=== PATIENT | female | born 1960 | race Caucasian/White ===

== ENCOUNTER → 2016-07-17 | Outpatient (CLI) | payer OTHER ==
[2016-07-17 10:06] LABS: EKG EKG PERFORMED
[2016-07-17 10:33] LABS: Basophils % (A) 1 %; CH 30.4; Eosinophils # (A) 0.2 k/uL (0-0.7); Eosinophils % (A) 2 %; HCT 39.2 % (34.0-46.0); HDW 2.49; HGB 13.6 gm/dL (11.4-16.0); Luc # (Auto) 0.21; Luc % (Auto) 3; Lymphocytes # (A) 2.6 k/uL (1.0-4.8); Lymphocytes % (A) 34 %; MCHC 34.6 g/dL (31.0-37.0); MCV 89.6 fL (80.0-100.0); Mean Platelet Volume 7.5; Monocytes # (A) 0.4 k/uL (0-1.0); Monocytes % (A) 5 %; Neutrophils # (A) 4.3 k/uL (1.3-7.7); Neutrophils % (A) 56 %; RBC 4.38 m/uL (3.80-5.40); RDW 12.8 % (11.5-15.5); WBC 7.7 k/uL (3.8-10.6); WBC (Perox) 8.26
[2016-07-17 10:38] LABS: Partial Thromboplastin Time 23.4 sec (22.0-30.0); Prothrombin Time 10.1 sec (9.0-12.0)
[2016-07-17 10:48] LABS: Appearance,Urine Clear (Clear); Bilirubin,Urine Negative (Negative); Glucose,Urine (UA) Negative (Negative); Ketones,Urine Negative (Negative); Leukocyte Esterase,Urine Moderate (Negative); Mucus,Urine Rare /hpf; Nitrite,Urine Negative (Negative); Particle Count 4759; Protein,Urine Negative (Negative); RBC,Urine 3 /hpf (0-5); Specific Gravity,Urine 1.005 (1.001-1.035); Squamous Epithelial Cell,Urine 6 /hpf (0-4); UA Billing (MACRO vs. MICRO) MICRO; Urobilinogen,Urine <2.0 mg/dL (<2.0); WBC,Urine 2 /hpf (0-5)
[2016-07-17 10:49] LABS: ALT 35 U/L (9-52); AST 22 U/L (14-36); Alkaline Phosphatase 55 U/L (38-126); Anion Gap 12 mmol/L; Blood Urea Nitrogen 15 mg/dL (7-17); Calcium 10.3 mg/dL (8.4-10.2); Carbon Dioxide 25 mmol/L (22-30); Chloride 107 mmol/L (98-107); Glucose 92 mg/dL (74-99); Non-African American GFR(MDRD) >60 (>60 ml/min/1.73 sqM); Potassium 4.9 mmol/L (3.5-5.1); Sodium 144 mmol/L (137-145); Total Bilirubin 0.5 mg/dL (0.2-1.3); Total Protein 7.5 g/dL (6.3-8.2)
== END ==
LOC: LABPAT 09:50
PROVIDERS: ATTEND Orthopaedic Surgery Sports Medicine
DX: Z01.810 Encounter for preprocedural cardiovascular examination (principal); Z01.812 Encounter for preprocedural laboratory examination
CPT/HCPCS: 80053; 81001; 85025; 85610; 85730; 87070; 93005

== ENCOUNTER → 2016-07-17 | Outpatient (CLI) | payer OTHER ==
--- NOTE | 2016-07-17 10:31 | CT ---
EXAMINATION TYPE: CT shoulder RT wo con DATE OF EXAM: 07/17/2016 8:52 AM COMPARISON: NONE HISTORY: Rt shoulder pain, presurgical study. CT DLP: 340 mGycm Automated exposure control for dose reduction was used. CT scan of right shoulder is performed withou t contrast. Reconstructed 3-D images are acquired FINDINGS: There is no acute fracture In the right shoulder. Distal acromion morphology is preserved. Subchondra l cystic change distal clavicle is present. No significant spurring at acromioclavicular joint is not ed. Glenohumeral joint shows moderate to advanced joint space loss. There is 40 degree posterior retrover darin of the glenoid noted. There is moderate bony loss and spurring of the posterior glenoid. There i s a 1.2 cm subchondral cyst in the inferior glenoid seen best on sagittal image 30. Anterior inferior glenoid shows prominent osteophyte seen best near axial image 22 series 3. There is loss of normal spherical shape of the humeral head superiorly. Findings suggest bony Bankart lesion in old Hill-Sachs deformity possibly related to old anterior shoulder dislocation. Rotator cuff muscle bulk is preserved. IMPRESSION: PRESURGICAL FINDINGS NOTED ABOVE, MOST SEVERE ARTHROPATHY GLENOHUMERAL JOINT LEVEL.
== END ==
LOC: RADCTMAIN 08:21
PROVIDERS: ATTEND Orthopaedic Surgery Sports Medicine
DX: M12.811 Other specific arthropathies, not elsewhere classified, right shoulder (principal); M19.011 Primary osteoarthritis, right shoulder
CPT/HCPCS: 93005

== ENCOUNTER → 2016-07-17 | Outpatient (CLI) | payer OTHER ==
--- NOTE | 2016-07-17 09:57 | MM ---
Reason for exam: follow-up at short interval from prior study. Last mammogram was performed 6 months ago. History: Patient is postmenopausal and has history of high-risk lesion on a previous biopsy at age 55. Family history of breast cancer in paternal grandmother. High risk MG stereo VAD BX addl LT of the left breast, February 04, 2016. High risk MG stereo VAD BX LT of the left breast, February 04, 2016. Excisional biopsy of the right breast. Physical Findings: Nurse did not find any significant physical abnormalities on exam. MG 3D Diag Mammo W/Cad [place]RI[place] Bilateral CC and MLO view(s) were taken. Prior study comparison: January 19, 2016, bilateral MG 3d work up w/cad [place]RI[place]. January 14, 2016, bilateral MG screening mammo w CAD. There are scattered fibroglandular densities. Previous mammotome biopsy in the left breast. There is chronic nodularity in the right breast. No significant new findings when compared with previous films. These results were verbally communicated with the patient and result sheet given to the patient on 07/17/16. ASSESSMENT: Benign, BI-RAD 2 RECOMMENDATION: Routine screening mammogram of both breasts in 1 year. Manage patient on a clinical basis.
== END ==
LOC: RADMAMWWP 08:41
PROVIDERS: ATTEND Surgery
DX: R92.8 Other abnormal and inconclusive findings on diagnostic imaging of breast (principal)
CPT/HCPCS: G0204; G0279

== ENCOUNTER 2016-08-17 11:00 | Inpatient (IN) | payer OTHER ==
[2016-08-28 15:15] VITALS: BMI 35.4
[2016-08-31] MEDS ORDERED: ONDANSETRON 4 MG/2 ML VIAL IVP ONE ×2 (05:00→05:32)
[2016-08-31] MEDS ORDERED: MELOXICAM 7.5 MG TAB PO ONE (05:00)
[2016-08-31] MEDS ORDERED: TRANEXAMIC ACID 1,000 MG in SODIUM CHLORIDE 0.9% 100 ML IVPB ONE ×4 (05:00)
[2016-08-31] MEDS ORDERED: ACETAMINOPHEN TAB 500 MG TAB PO ONE (05:00)
[2016-08-31] MEDS ORDERED: ceFAZolin 2 GM in SODIUM CHLORIDE 0.9% 100 ML IVPB ONE (05:00)
[2016-08-31] MEDS ORDERED: DEXAMETHASONE SOD PHOSPHATE 10 MG/ML 1 ML VIAL IV ONE (05:32)
[2016-08-31] MEDS ORDERED: LACTATED RINGERS 1,000 ML IV SCH (05:32)
[2016-08-31] MEDS ORDERED: MIDAZOLAM 2 MG/2 ML VIAL IV PRN (05:32)
[2016-08-31] MEDS ORDERED: LIDOCAINE 1% 20 ML VIAL (10MG/ML) FOR IV START SQ ONE (10:10)
[2016-08-31] MEDS ORDERED: fentaNYL (PF) 50 MCG/ML 2 ML AMP ONE (11:28)
[2016-08-31] MEDS ORDERED: ePHEDrine 50 MG/ML 1 ML AMP ONE (11:28)
[2016-08-31] MEDS ORDERED: SUCCINYLCHOLINE CHLORIDE 100 MG/5 ML SYR IV ONE (11:28)
[2016-08-31] MEDS ORDERED: TRANEXAMIC ACID 1,000 MG/10 ML VIAL ONE (11:28)
[2016-08-31] MEDS ORDERED: LIDOCAINE 2%-EPI 1:100,000 20 ML VIAL ONE (11:28)
[2016-08-31] MEDS ORDERED: BUPIVACAINE (PF) 0.5% 30 ML VIAL ONE (11:28)
[2016-08-31] MEDS ORDERED: MIDAZOLAM 2 MG/2 ML VIAL ONE (11:28)
[2016-08-31] MEDS ORDERED: PHENYLEPHRINE-0.9% NACL SYG 1 MG/10 ML SYRINGE ONE (11:28)
[2016-08-31] MEDS ORDERED: NEOSTIGMINE 1 MG/ML 10 ML VIAL ONE (11:28)
[2016-08-31] MEDS ORDERED: PROPOFOL 10 MG/ML 20 ML VIAL IV ONE (11:28)
[2016-08-31] MEDS ORDERED: ROCURONIUM BROMIDE 10 MG/ML 10 ML VIAL IV ONE (11:28)
[2016-08-31] MEDS ORDERED: GLYCOPYRROLATE 0.2 MG/ML 2 ML VIAL ONE (11:28)
[2016-08-31] MEDS ORDERED: SODIUM CHLORIDE 0.9% 100 ML BAG ONE (11:28)
[2016-08-31] MEDS ORDERED: LIDOCAINE 1% INJ 10MG/ML (20 ML MDV) ONE (11:28)
[2016-08-31] MEDS ORDERED: ceFAZolin 3,000 MG in SODIUM CHLORIDE 0.9% IRRIGATIO 3,000 ML IRRIGATION ONE (12:02)
[2016-08-31] MEDS ORDERED: LACTATED RINGERS 1,000 ML IV ONE ×3 (12:15→15:50)
[2016-08-31] MEDS: LACTATED RINGERS 1,000 ML IV ONE ×2 (12:15→14:06)
[2016-08-31] MEDS ORDERED: VANCOMYCIN 1,000 MG VIAL MISCELLANE ONE ×2 (12:34→13:31)
[2016-08-31] MEDS ORDERED: PROCHLORPERAZINE SUPPOSITORY 25 MG SUPP RECTAL PRN (14:07)
[2016-08-31] MEDS ORDERED: ONDANSETRON 4 MG/2 ML VIAL IVP PRN (14:07)
[2016-08-31] MEDS ORDERED: METOCLOPRAMIDE 5 MG/ML 2 ML VIAL IVP PRN (14:07)
[2016-08-31] MEDS ORDERED: diphenhydrAMINE 25 MG CAP PO PRN (14:07)
[2016-08-31] MEDS ORDERED: HYDROcodone/APAP 5-325MG 1 EACH TAB PO PRN ×2 (14:07)
[2016-08-31] MEDS ORDERED: TEMAZEPAM 15 MG CAP PO PRN (14:07)
[2016-08-31] MEDS ORDERED: HYDROmorphone 1 MG/ML 1 ML SYRINGE IVP PRN ×3 (14:07)
[2016-08-31] MEDS ORDERED: SENNOSIDES-DOCUSATE SODIUM 1 EACH TAB PO PRN (14:07)
[2016-08-31] MEDS: HYDROmorphone 1 MG/ML 1 ML SYRINGE IVP PRN ×4 (14:11→15:16)
[2016-08-31] MEDS ORDERED: HYDROcodone/APAP 7.5-325MG 1 EACH TAB PO PRN (14:16)
--- NOTE | 2016-08-31 14:42 | XR ---
EXAMINATION TYPE: XR shoulder limited RT DATE OF EXAM: 08/31/2016 2:25 PM COMPARISON: NONE HISTORY: 56-year-old female postop hardware alignment TECHNIQUE: Single portable AP view FINDINGS: A surgical drain is present as well as soft tissue/bursal/intra-articular air related to recent opera tion. Images show placement of a reverse right shoulder arthroplasty. Alignment appears appropriate. No periprosthetic fracture identified. IMPRESSION: Uncomplicated postoperative appearance reverse right total shoulder arthroplasty.
[2016-08-31 17:22] LABS: Basophils % (A) 0 %; CH 29.5; CHCM 31.4; Eosinophils % (A) 0 %; HCT 39.4 % (34.0-46.0); HDW 2.36; HGB 12.5 gm/dL (11.4-16.0); Luc # (Auto) 0.05; Luc % (Auto) 1; Lymphocytes # (A) 0.8 k/uL (1.0-4.8); Lymphocytes % (A) 8 %; MCH 29.9 pg (25.0-35.0); MCHC 31.8 g/dL (31.0-37.0); MCV 94.1 fL (80.0-100.0); Mean Platelet Volume 6.9; Monocytes # (A) 0.1 k/uL (0-1.0); Monocytes % (A) 1 %; Neutrophils # (A) 8.9 k/uL (1.3-7.7); Neutrophils % (A) 90 %; RBC 4.19 m/uL (3.80-5.40); RDW 12.9 % (11.5-15.5); WBC (Perox) 9.85
[2016-08-31] MEDS: LACTATED RINGERS 1,000 ML IV SCH (18:11)
[2016-08-31] MEDS: ceFAZolin 2 GM in SODIUM CHLORIDE 0.9% 100 ML IVPB SCH (21:58)
[2016-08-31] MEDS: DOXYCYCLINE 50 MG CAP PO SCH (21:58)
[2016-09-01] MEDS: LACTATED RINGERS 1,000 ML IV SCH ×4 (01:48→21:50)
[2016-09-01 03:43] VITALS: RESP 16
[2016-09-01] MEDS: ceFAZolin 2 GM in SODIUM CHLORIDE 0.9% 100 ML IVPB SCH (03:57)
[2016-09-01] MEDS: DOXYCYCLINE 50 MG CAP PO SCH ×2 (07:21→21:32)
[2016-09-01] MEDS: HYDROcodone/APAP 10-325MG 1 EACH TAB PO PRN ×3 (09:20→18:03)
[2016-09-01] MEDS: hydrOXYzine PAMOATE 25 MG CAP PO PRN ×3 (09:20→18:03)
--- NOTE | 2016-09-01 09:36 | P.DS ---
Providers Date of admission: 08/31/16 09:16 Expected date of discharge: 09/01/16 Attending physician: Ross Negrete Consults: 08/31/16 14:07 Consult Physician Routine Consulting Provider: Bari Cee Consult Reason/Comments: post op medical management Do you want consulting provider notified?: Yes Primary care physician: Cindy [facility] Course: Patient is a pleasant 56-year-old female who was admitted to the OR on 2016 to undergo right total shoulder arthroplasty. She had failed conservative measures as an outpatient and desired to proceed with elective surgery after given informed consent. She underwent the above procedure which she tolerated well without complication. On day of discharge she desires discharge to home. Day of discharge she is tolerating by mouth meds and diet, has no new complaints , pain is controlled with oral pain medication, passing flatus, voiding without difficulty, afebrile, vital signs stable, labs within acceptable ranges, neurovascular status intact, wound is benign, calf is soft and nontender, abdomen soft nontender. Review of systems is negative for fever, chills, chest pain, shortness breath, nausea, vomiting, numbness, tingling, weakness, slurred speech or other Procedures: Right total shoulder arthroplasty Patient Condition at Discharge: Good Plan - Discharge Summary New Discharge Prescriptions: Doxycycline Hyclate 100 mg PO BID #10 tab HYDROcodone/APAP 10-325MG [Justice 10-325] 1 tab PO Q4HR PRN #60 tab PRN Reason: Pain Discharge Medication List Acetaminophen Tab [Tylenol Tab] 1,000 mg PO Q6HR PRN 08/28/16 [History] PARoxetine [Paxil] 10 mg PO DAILY 08/28/16 [History] Sulfamethox-Tmp 800-160Mg [Bactrim DS 800-160 mg] 1 tab PO Q12HR 08/29/16 [ History] Atorvastatin [Lipitor] 40 mg PO DAILY 08/31/16 [History] Doxycycline Hyclate 100 mg PO BID #10 tab 09/01/16 [Rx] HYDROcodone/APAP 10-325MG [Justice 10-325] 1 tab PO Q4HR PRN #60 tab 09/01/16 [Rx] Follow up Appointment(s)/Referral(s): Ross Negrete MD [STAFF PHYSICIAN] - 10 Days Activity/Diet/Wound Care/Special Instructions: Keep wound clean and dry Take meds as directed Nonweightbearing right upper extremity Follow-up with Dr. Negrete in office, [phone] Discharge Disposition: HOME SELF-CARE
--- NOTE | 2016-09-01 10:44 | OP ---
DATE OF SERVICE: 08/31/2016 SURGEON: ZORAN LIU MD ATTENDANT SELF SERVICE STORE: Altaf Waite PA-C PREOPERATIVE DIAGNOSIS: Right shoulder osteoarthrosis. POSTOPERATIVE DIAGNOSIS: Right shoulder osteoarthrosis. OPERATION: Right reverse total shoulder arthroplasty. ANESTHESIA: General endotracheal. ESTIMATED BLOOD LOSS: 400 mL. SPECIMENS REMOVED: COMPLICATIONS: None apparent. DRAINS: One deep drain. DISPOSITION: Postanesthesia care unit. OPERATIVE FINDINGS: INDICATIONS: Calli is a very pleasant 56-year-old female of longstanding right shoulder pain. Workup including x-rays revealed advanced osteoarthrosis of the right shoulder. At this point it is felt that she has failed conservative management and she would like to proceed with operative intervention. The risks of the procedure were discussed with her in detail. These risks include but are not limited to risk of infection, nerve damage, bleeding, pain, instability in the shoulder, loosening of the implants and deep infection. There is also risk of deep vein thrombosis, which could lead to fatal pulmonary embolism. The patient understood the risks. All of her questions with regards to the risk for the procedure were answered to her satisfaction. An appropriate informed consent was obtained. DESCRIPTION OF PROCEDURE: The patient was identified in the preoperative holding area. Surgical site was marked by both the patient and myself. She is given 2 grams of Ancef IV for prophylactic purposes. She was then transferred to the operative suite where she was placed supine on the operative table. A general anesthetic was then administered and dosed per the Anesthesia Department without apparent complications. Examination under anesthesia was then performed of the right shoulder. She had elevation to 110 degrees, external rotation at the side was to 20 degrees. The patient's right upper extremity was then prepped and draped in the usual sterile fashion. Standard surgical pause was then undertaken to ensure that we are operating on the correct site and that appropriate preoperative antibiotics had been given. All staff in the room were in agreement and we proceeded. The acromion, AC joint, clavicle, and coracoid were marked with a surgical pen. A planned incision starting at the level of the clavicle and extending distally over the deltopectoral interval approximately 1 cm lateral to the coracoid was marked with a surgical pen. The incision was then made with 10 blade scalpel. Dissection was carried down sharply to the deltoid fascia. The deltopectoral interval was identified at the level of the clavicle. A small band retractor was then placed onto the proximal deltoid. I then released the deltoid fascia on the lateral aspect of the cephalic vein. The vein was left in its bed medially. The cephalic vein was protected throughout the entire case. I then identified the clavipectoral fascia. It was incised proximally to level of the coracoacromial ligament. The coracoacromial ligament was left intact. I then used my finger to spread the interval between the conjoined tendon and the subscapularis. I felt for the axillary nerve, which was readily palpable. I then cleared the subacromial and subdeltoid spaces of bursal and scar tissue. I then utilized a brown retractor to hold the deltoid and expose the humeral head. I then proceeded to release the subscapularis in the anterior-inferior shoulder capsule. The rotator cuff was inspected inferior. It was found to be intact. The rotator interval was clearly identified. The course of the biceps tendon was also identified. I then released the rotator interval. It was released at the base of the coracoid and then out laterally. The subscapularis and the capsule were then released intratendinously. Subscapularis and the anterior capsule release then extended distally in a lazy S fashion, approximately 1 cm medial to the biceps tendon. I then continued to release the capsule along the inferior neck in a vertical fashion to about approximately 6 o'clock position. Great care was taken to ensure that the capsule was always visualized as it was released to avoid injuring the axillary nerve. I then brought a Evans inspector packer with the arm externally rotated and abducted. I then continued to release the capsule inferomedially to the 4 o'clock position. The inferior osteophytes were then removed as well. This was done with a rongeur. I then proceeded with preparation of the humerus. I removed all the inferior goat's galvez osteophytes. I then removed the subchondral plate from the superior aspect of the humeral head utilizing a large rongeur. I then used a starter reamer to gain access to the humeral canal. This was 1 cm medial to the rotator cuff insertion and 1 cm posterior to the bicipital groove. I then prepared the humeral canal with hand reaming. I started with a 6 mm reamer and progressed in 1 mm increments until firm resistance was encountered at 9 mm. The reamer handle was then left in place. I then utilized the humeral resection guide. This was set at 30 degrees of retrotorsion. The cutting block was then set for approximately 1 to 2 mm above the insertion of the rotator cuff. I then proceeded to osteotomize the head with an oscillating saw. I removed the resection guide and then completed the osteotomy. I then proceeded with trial stem placement. I first started with 6 mm broach and then broached up to a 9 mm broach. A 9 mm mini trial stem was then placed. At this point, I proceeded with exposure of the glenoid. She did have quite a bit of retroversion noted on her preoperative CT scan. I wanted to expose the glenoid to make a decision about the type of implant to use before trialing the humeral head. At this point I did release the biceps tendon. This was tenotomized. I first tenodesed the biceps tendon to the soft tissues of the bicipital groove. Then I tenotomized the intra-articular aspect of the biceps tendon at the level of the superior labrum. A bone hook was then utilized to pull humerus out laterally. I inspected the joint for any loose bodies. The condition of the cuff was again inspected. It was intact. Bhattman retractor was then placed on the posterior glenoid rim. The arm was then placed in approximately 70 to 80 degrees of abduction and slight flexion on the Evans stand. I then proceeded to remove the hypertrophic labrum to definitively identify the actual glenoid. I then inspected the glenoid. She had significant amount of retroversion. She had an appearance of her glenoid that it was hypoplastic as well. Due to fairly significant retroversion and the hypoplasia of the glenoid I made a decision to go forward with a semiconstrained implant at this time and proceeded with a reverse total shoulder arthroplasty. I then placed the mini baseplate guide. This fit very nicely on the glenoid. The pin was then placed in the center of the glenoid with approximately 10 degrees of inferior tilt. I was able to feel along the anterior neck of the glenoid. The pin did not protrude out anteriorly. It was placed centrally within the scapula. I then proceeded with reaming. I utilized the reamer. Again it was reamed in approximately 10 degrees of inferior tilt. Approximately the superior lateral aspect of the glenoid after reaming still was left unreamed. This was an area where I planned to proceed with bone grafting behind the glenoid baseplate. I then had the chemical sales representative open Biomet mini glenoid baseplate. It was then impacted into place. I then utilized bone from the osteotomized humeral head to pack behind the posterior superior aspect of the baseplate. I then proceeded to place a central screw. A 25 mm central screw was then placed. I had excellent purchase in bone. I was able to rotate the scapula through with the screwdriver after the screw was firmly seated. I then proceeded to place the peripheral locking screws. The superior and an inferior screws were placed. These were 20 mm and 15 mm screws. The posterior screw was also placed. This was a 30 mm screw. These were all 5.0 mm locking screws. The anterior screw was not placed as I felt it would protrude anteriorly. I then placed a trial 36 glenosphere. This seemed to fit very nicely. I then had the chemical sales representative open a Biomet 36 mm glenosphere. I then impacted the trunnion on the back table. This was done so that I could offset the glenosphere inferiorly as much possible. The glenosphere was then impacted onto the baseplate securely. I then proceeded with trialing. The proximal humerus was then delivered out of the wound again. A standard tray and a standard polyethylene was then placed onto the stem. The shoulder was reduced. It was a very difficult reduction. There was very minimal shuck. The shoulder was stable throughout a full range of motion. I decided to go with a standard tray and a standard poly. The shoulder was then dislocated. Again, the proximal humerus was delivered out through the wound. The wound was again thoroughly irrigated with sterile saline solution with antibiotic added. I had the chemical sales representative open a Biomet size 9 mini stem, a standard polyethylene for a 36 mm glenosphere and a standard tray. The poly was impacted onto the tray on the back table. The 9 mini stem was then placed in 30 degrees of retrotorsion. The standard tray was then placed onto the Meeks taper of the stem and impacted into place firmly. The shoulder was then reduced. It was very stable. There was no undue tension on the conjoined tendon. It was taken through full range of motion. It was very stable. No impingement was noted. I then assessed to see if I could repair the subscapularis. I was able to bring the subscapularis back to the lesser tuberosity and approximately 20 degrees of external rotation. I then repaired the subscapularis with #2 Vicryl interrupted suture. The rotator interval was also a closed with #2 Vicryl interrupted suture. The wound again was thoroughly irrigated with sterile saline solution with antibiotic added. A deep drain was then placed and brought out proximally through the skin away from the incision. Vancomycin powder was then placed into the wound. The axillary nerve was felt for and was intact. The deltopectoral interval was then closed with 0 Vicryl interrupted suture. Again, the wound was thoroughly irrigated with sterile saline solution with antibiotic added. Again, the rest of the vancomycin powder was placed. In total it was 1 gram of vancomycin powder. The subcutaneous tissue was then closed with 2-0 Vicryl interrupted suture and the skin was closed with 3-0 Quill suture. Dermabond was then applied to the incision. Sterile compressive dressings were applied. The patient's right upper extremity was then placed into a standard sling. All sponge and needle counts were deemed correct prior to closure. The patient tolerated the procedure without apparent complication. She was transferred to recovery room in stable condition.
--- NOTE | 2016-09-01 12:48 | P.CONS ---
History of Present Illness - Reason for Consult Consult date: 09/01/16 Medical management Requesting physician: Ross Negrete - Chief Complaint Status post right total shoulder arthroplasty - History of Present Illness This is a 56-year-old female with a known history of hyperlipidemia, generalized anxiety disorder and recent UTI. Patient completed antibiotic outpatient for her urinary tract infection. She's no longer having urinary symptoms. Patient has been suffering with right shoulder pain failing conservative management. Therefore she underwent a right total shoulder arthroplasty yesterday with Dr. Negrete. Patient tolerated surgery well. She is complaining of some pain in that shoulder. Orthopedics have adjusted pain medication. If patient's pain is controlled she likely will be discharged later this evening. Patient denies any fever or chills or sweats. Denies any nausea or vomiting. Last bowel movement was prior to surgery. Denies any difficulty urinating. Denies any burning with urination. Patient has been up and ambulating Review of Systems Please refer to HPI otherwise unremarkable Past Medical History Past Medical History: Hyperlipidemia, Musculoskeletal Disorder Additional Past Medical History / Comment(s): RT SHOULDER PAIN. Uti completed antibiotics History of Any Multi-Drug Resistant Organisms: None Reported Past Surgical History: Breast Surgery Additional Past Surgical History / Comment(s): RT BREAST LUMPECTOMY. LT Breast Biopsy; cervical biopsy. COLONOSCOPY. Past Anesthesia/Blood Transfusion Reactions: No Reported Reaction Past Psychological History: No Psychological Hx Reported Smoking Status: Former smoker Past Alcohol Use History: Rare Additional Past Alcohol Use History / Comment(s): SMOKED 30 YEARS, 1 / PPD, QUIT 06/2016 Past Drug Use History: None Reported - Past Family History Mother Family Medical History: Cancer Medications and Allergies Home Medications Medication Instructions Recorded Confirmed Type Acetaminophen Tab [Tylenol Tab] 1,000 mg PO Q6HR PRN 08/28/16 08/31/16 History PARoxetine [Paxil] 10 mg PO DAILY 08/28/16 08/31/16 History Sulfamethox-Tmp 800-160Mg [Bactrim 1 tab PO Q12HR 08/29/16 08/31/16 History DS 800-160 mg] Atorvastatin [Lipitor] 40 mg PO DAILY 08/31/16 08/31/16 History Allergies Allergy/AdvReac Type Severity Reaction Status Date / Time aspirin AdvReac Nausea Verified 08/28/16 14:39 Physical Exam Vitals: Vital Signs Temp Pulse Pulse Pulse Resp BP Pulse Ox 09/01/16 08:00 58 L 61 16 09/01/16 07:28 98.0 F 61 16 105/71 95 09/01/16 01:00 98.4 F 79 16 120/72 93 L 08/31/16 20:00 97.9 F 69 18 102/71 97 08/31/16 19:15 58 L 97/61 08/31/16 18:45 60 103/61 08/31/16 18:15 70 92/73 08/31/16 18:00 57 L 83/57 08/31/16 17:45 56 L 94/56 08/31/16 17:30 58 L 86/49 08/31/16 17:15 59 L 85/40 08/31/16 17:00 73 109/75 08/31/16 16:45 69 106/71 08/31/16 16:30 62 89/47 08/31/16 16:15 97.5 F L 77 18 129/74 92 L 08/31/16 15:55 78 18 104/61 95 08/31/16 15:40 80 16 101/59 95 08/31/16 15:25 63 16 104/58 95 08/31/16 15:10 74 16 107/64 97 08/31/16 14:55 71 16 104/58 97 08/31/16 14:40 63 16 100/56 96 08/31/16 14:25 76 18 118/60 98 08/31/16 14:10 97.7 F 77 16 99/54 98 Intake and Output 08/31/16 09/01/16 09/01/16 22:59 06:59 14:59 Intake Total 660 800 240 Output Total 20 740 Balance 640 60 240 Intake: IV 600 800 Lactated Ringers 1,000 ml 400 800 @ 100 mls/hr IV .Q10H MATT Rx#:[id number] Oral 60 240 Output: Drainage 40 Right Shoulder 40 Urine 700 Estimated Blood Loss 20 Other: # Voids 2 1 Head normocephalic Neck supple Lungs clear to auscultation bilaterally no wheezing or crackles Heart regular rate and rhythm S1-S2, no rub or gallop Abdomen is soft nontender nondistended positive bowel sounds no hepatosplenomegaly Extremities no edema of the lower extremities. Right shoulder in sling. Dressing clean dry and intact. +2 radial pulse. Neuro alert and orientated to 3 Results CBC & Chem 7: 08/31/16 16:50 Labs: Abnormal Lab Results - Last 24 Hours (Table) 08/31/16 Range/Units 16:50 Neutrophils # 8.9 H (1.3-7.7) k/uL Lymphocytes # 0.8 L (1.0-4.8) k/uL Assessment and Plan Plan: 1. Right shoulder osteoarthrosis status post right total shoulder arthroplasty. Pain control per orthopedics. Estimated blood loss 400 mL. No complications. Orthopedics have adjusted patient's pain medication. 2. History of hyperlipidemia: Patient reports stopping her Lipitor because it made her sick. She's not taken in a few months. She reports that she'll be following up with Dr. Mcclure to discuss this. 3. Generalized anxiety disorder continue with the Paxil 4. Recent UTI completed antibiotic treatment outpatient. Patient no longer having any urinary symptoms. Anticipate discharge later on this afternoon or tomorrow if patient's pain is controlled Thank you for this consultation. We will continue to follow along with you. Recommend that patient does follow up with Dr. Mcclure in 1 week when discharged Time with Patient: Greater than 30 (Greater than 50% of the total time spent in counseling and coordination of care.I performed an examination of the patient and discussed their management with the physician Store Receiver. I have reviewed the Physician Store Receiver's notes and agree with the documented findings and plan of care)
[2016-09-01] MEDS: PARoxetine 10 MG TAB PO SCH (18:03)
[2016-09-01] MEDS ORDERED: hydrOXYzine PAMOATE 25 MG CAP PO PRN (19:14)
[2016-09-01] MEDS ORDERED: hydrOXYzine PAMOATE 25 MG CAP PO SCH (20:00)
[2016-09-02] MEDS: HYDROcodone/APAP 10-325MG 1 EACH TAB PO PRN ×3 (01:39→14:13)
[2016-09-02 02:31] VITALS: TEMP 98.3
[2016-09-02] MEDS: DOXYCYCLINE 50 MG CAP PO SCH (07:36)
[2016-09-02] MEDS: PARoxetine 10 MG TAB PO SCH (07:38)
[2016-09-02 07:51] LABS: Basophils % (A) 0 %; CH 29.4; CHCM 32.6; Eosinophils # (A) 0.1 k/uL (0-0.7); Eosinophils % (A) 1 %; HCT 35.2 % (34.0-46.0); HDW 2.38; HGB 11.5 gm/dL (11.4-16.0); Luc # (Auto) 0.13; Luc % (Auto) 1; Lymphocytes # (A) 2.8 k/uL (1.0-4.8); Lymphocytes % (A) 30 %; MCH 29.7 pg (25.0-35.0); MCHC 32.8 g/dL (31.0-37.0); MCV 90.7 fL (80.0-100.0); Mean Platelet Volume 6.5; Monocytes # (A) 0.5 k/uL (0-1.0); Monocytes % (A) 5 %; Neutrophils # (A) 5.9 k/uL (1.3-7.7); Neutrophils % (A) 63 %; RBC 3.88 m/uL (3.80-5.40); RDW 12.7 % (11.5-15.5); WBC 9.4 k/uL (3.8-10.6); WBC (Perox) 9.92
[2016-09-02 08:08] LABS: ALT 33 U/L (9-52); AST 27 U/L (14-36); Alkaline Phosphatase 47 U/L (38-126); Anion Gap 8 mmol/L; Blood Urea Nitrogen 16 mg/dL (7-17); Calcium 9.4 mg/dL (8.4-10.2); Carbon Dioxide 25 mmol/L (22-30); Chloride 104 mmol/L (98-107); Glucose 88 mg/dL (74-99); Non-African American GFR(MDRD) >60 (>60 ml/min/1.73 sqM); Potassium 4.1 mmol/L (3.5-5.1); Sodium 137 mmol/L (137-145); Total Bilirubin 0.5 mg/dL (0.2-1.3); Total Protein 6.8 g/dL (6.3-8.2)
[2016-09-02 08:24] VITALS: BP 131/74; PULSE 88
--- NOTE | 2016-09-02 10:10 | P.PN ---
Progress Note - Text This is an addendum on discharge summary for Calli Nazario. Her discharge was held for pain management. Patient has significant improvement in pain management today. She is discharged to home on 09/02/2016.
--- NOTE | 2016-09-02 14:11 | P.PN ---
Subjective Calli Nazario is a 56-year-old female who has been suffering with right shoulder pain failing conservative management. Therefore she underwent a right total shoulder arthroplasty yesterday with Dr. Negrete. Patient tolerated surgery well. She is complaining of some pain in that shoulder. Orthopedics have adjusted pain medication. On review of systems Patient denies any fever or chills or sweats. Denies any nausea or vomiting. Last bowel movement was prior to surgery. Denies any difficulty urinating. Denies any burning with urination. Patient has been up and ambulating Objective - Vital Signs Vital signs: Vital Signs Temp 98.3 F 09/02/16 07:30 Pulse 88 09/02/16 07:30 Resp 16 09/02/16 08:00 BP 131/74 09/02/16 07:30 Pulse Ox 93 L 09/02/16 07:30 Intake & Output 09/01/16 09/02/16 09/02/16 18:59 06:59 18:59 Intake Total 360 100 Balance 360 100 Intake: Oral 360 100 Other: Voiding Method Toilet # Voids 2 1 - Exam HEENT head normocephalic and atraumatic Neck is supple no JVD no goiter no lymphadenopathy Chest is clear to auscultation no wheezing Cardiac exam reveals regular heart sounds no gallops no murmurs Abdomen is soft nontender no organomegaly Extremity exam reveals no edema no cyanosis or clubbing - Labs CBC & Chem 7: 09/02/16 07:24 09/02/16 07:24 Assessment and Plan Plan: . Right shoulder osteoarthrosis status post right total shoulder arthroplasty. Pain control per orthopedics. Estimated blood loss 400 mL. No complications. Orthopedics have adjusted patient's pain medication. 2. History of hyperlipidemia: Patient reports stopping her Lipitor because it made her sick. She's not taken in a few months. She reports that she'll be following up with Dr. Mcclure to discuss this. 3. Generalized anxiety disorder continue with the Paxil 4. Recent UTI completed antibiotic treatment outpatient. Patient no longer having any urinary symptoms. Patient can be discharged home from medical standpoint.
== END 2016-09-02 14:44 | disposition home or self-care (01) | DRG 483 ==
LOC: 2ORMAIN 08-31 09:16 → 3SUR 08-31 14:19
PROVIDERS: ADMIT Orthopaedic Surgery Sports Medicine; ATTEND Orthopaedic Surgery Sports Medicine
PROC: 0RRJ00Z Replacement of Right Shoulder Joint with Reverse Ball and Socket Synthetic Substitute, Open Approach (ICD-10-PCS; principal; 2016-08-31 11:00)
DX: M19.011 Primary osteoarthritis, right shoulder (principal); E78.5 Hyperlipidemia, unspecified; F41.1 Generalized anxiety disorder; Z79.899 Other long term (current) drug therapy; Z87.891 Personal history of nicotine dependence; Z88.6 Allergy status to analgesic agent
CPT/HCPCS: 64415; 80053; 85025; 88305; 88311

== ENCOUNTER → 2017-07-19 | Outpatient (CLI) | payer OTHER ==
--- NOTE | 2017-07-20 12:03 | MM ---
Reason for exam: screening (asymptomatic). Last mammogram was performed 1 year ago. History: Patient is postmenopausal and has history of high-risk lesion on a previous biopsy at age 55. Family history of breast cancer in mother at age 50 and breast cancer in paternal grandmother at age 50. High risk MG stereo VAD BX addl LT of the left breast, February 04, 2016. High risk MG stereo VAD BX LT of the left breast, February 04, 2016. Excisional biopsy of the right breast. Physical Findings: A clinical breast exam by your physician is recommended on an annual basis and results should be correlated with mammographic findings. MG 3D Screening Mammo W/Cad Bilateral CC and MLO view(s) were taken. Prior study comparison: July 17, 2016, bilateral MG 3d diag mammo w/cad [place]. January 19, 2016, bilateral MG 3d work up w/cad [place]. There are scattered fibroglandular densities. Benign calcifications bilaterally. Previous mammotome biopsy in the left breast. There is chronic nodularity in the right breast. No significant changes when compared with prior studies. ASSESSMENT: Benign, BI-RAD 2 RECOMMENDATION: Routine screening mammogram of both breasts in 1 year.
== END | disposition home or self-care (01) ==
LOC: RADMAMWWP 13:24
PROVIDERS: ATTEND Family Medicine
DX: Z12.31 Encounter for screening mammogram for malignant neoplasm of breast (principal)
CPT/HCPCS: 77063; 77067

== ENCOUNTER → 2018-07-31 | Outpatient (CLI) | payer OTHER ==
--- NOTE | 2018-08-01 10:51 | MM ---
Reason for exam: screening (asymptomatic). Last mammogram was performed 1 year ago. History: Patient is postmenopausal and has history of high-risk lesion on a previous biopsy at age 55. Family history of breast cancer in mother at age 50 and breast cancer in paternal grandmother at age 50. High risk MG stereo VAD BX addl LT of the left breast, February 04, 2016. High risk MG stereo VAD BX LT of the left breast, February 04, 2016. Excisional biopsy of the right breast. Physical Findings: A clinical breast exam by your physician is recommended on an annual basis and results should be correlated with mammographic findings. MG 3D Screening Mammo W/Cad Bilateral CC and MLO view(s) were taken. Prior study comparison: July 19, 2017, bilateral MG 3d screening mammo w/cad. July 17, 2016, bilateral MG 3d diag mammo w/cad [place]. The breast tissue is heterogeneously dense. This may lower the sensitivity of mammography. There are benign appearing round circumscribed stable right upper outer quadrant masses. No suspicious abnormality. Post biopsy change on the left. ASSESSMENT: Benign, BI-RAD 2 RECOMMENDATION: Routine screening mammogram of both breasts in 1 year.
== END | disposition home or self-care (01) ==
LOC: RADMAMWWP 09:58
PROVIDERS: ATTEND Family Medicine
DX: Z12.31 Encounter for screening mammogram for malignant neoplasm of breast (principal)
CPT/HCPCS: 77063; 77067

== ENCOUNTER → 2019-01-30 | Outpatient (CLI) | payer OTHER ==
--- NOTE | 2019-01-30 12:45 | XR ---
EXAMINATION TYPE: XR foot complete LT DATE OF EXAM: 01/30/2019 CLINICAL HISTORY: pain TECHNIQUE: Frontal, lateral and oblique images of the left foot are obtained. COMPARISON: None. FINDINGS: There is no acute fracture/dislocation evident. The joint spaces appear within normal osborne its. The overlying soft tissue appears unremarkable. IMPRESSION: There is no acute fracture or dislocation. ICD 10 NO FRACTURE, INITIAL EVALUATION
== END | disposition home or self-care (01) ==
LOC: RADXRMAIN 11:47
PROVIDERS: ATTEND Family Medicine
DX: R52 Pain, unspecified (principal)